=== PATIENT | male | born 1945 | race Caucasian/White ===

== ENCOUNTER 2023-08-02 14:11 | Observation (INO) | payer BC ==
--- NOTE | 2023-08-02 15:22 | XR ---
EXAMINATION TYPE: XR chest 2V DATE OF EXAM: 08/02/2023 3:18 PM CLINICAL INDICATION:Male, 78 years old with history of dysrhythmia; [facility] COMPARISON: None TECHNIQUE: XR chest 2V Frontal and lateral views of the chest. FINDINGS: Lungs/Pleura: Subsegmental atelectasis is identified within the lungs. No evidence of pleural effusio n or pneumothorax. Pulmonary vascularity: Unremarkable. Heart/mediastinum: Cardiomediastinal silhouette is unremarkable. Musculoskeletal: No acute osseous pathology. IMPRESSION: No acute cardiopulmonary disease/process.
--- NOTE | 2023-08-02 15:49 | ED ---
Arrhythmia/Palpitations HPI <Lit Jacobs - Last Filed: 08/02/23 17:56> - General Source: patient Mode of arrival: ambulatory Limitations: no limitations <Naa Lima - Last Filed: 08/02/23 23:25> - General Chief Complaint: Arrhythmia/Palpitations Stated Complaint: fluttery feeling in heart Time Seen by Provider: 08/02/23 14:25 - History of Present Illness Initial Comments: 78-year-old male presents to the emergency department reporting palpitations. Has a history of A-fib. Takes metoprolol 25 mg once daily. States that he went to the [facility] yesterday for the palpitations. They increased his metoprolol to twice a day due to frequent PVCs. Laboratory studies were conducted and were normal. States that his symptoms were so bad last night that he could not sleep. He denies any chest pain or shortness of breath. (Naa Lima) - Related Data Home Medications Medication Instructions Recorded Confirmed Aspirin EC [Ecotrin Low Dose] 81 mg PO HS 08/02/23 08/02/23 Atorvastatin [Lipitor] 20 mg PO HS 08/02/23 08/02/23 Cholecalciferol [Vitamin D3 (25 25 mcg PO HS 08/02/23 08/02/23 Mcg = 1000 Iu)] Cinnamon 1200mg 1,200 mg PO BID 08/02/23 08/02/23 Cyanocobalamin (Vitamin B-12) 1,000 mcg PO DAILY 08/02/23 08/02/23 [Vitamin B-12] Glucosamine/Chondro Chairez A [Cosamin 1 tab PO HS 08/02/23 08/02/23 Ds Tablet] LORazepam [Ativan] 0.5 mg PO HS PRN 08/02/23 08/02/23 Magnesium Chloride [Slow-Mag] 64 mg PO BID 08/02/23 08/02/23 Magnesium Glycinate High Absorption 1 tab PO DAILY 08/02/23 08/02/23 Dustin Red(Unknown) 1 cap PO DAILY 08/02/23 08/02/23 Metoprolol Succinate (ER) [Toprol 25 mg PO BID 08/02/23 08/02/23 Xl] Mv-Min/Folic/K1/Lycopen/Lutein 1 tab PO DAILY 08/02/23 08/02/23 [Centrum Silver Men Tablet] Prevagen 1 cap PO DAILY 08/02/23 08/02/23 Sildenafil Citrate [Viagra] 50 mg PO DIRECTED PRN 08/02/23 08/02/23 Super Beta Prostate 1 tab PO DAILY 08/02/23 08/02/23 Ubidecarenone [Coenzyme Q10] 100 mg PO DAILY 08/02/23 08/02/23 lisinopriL [Zestril] 10 mg PO DAILY 08/02/23 08/02/23 metFORMIN HCL ER [Glucophage XR] 500 mg PO DAILY 08/02/23 08/02/23 polyethylene glycoL 3350 [Miralax] 17 gm PO DAILY PRN 08/02/23 08/02/23 Allergies Allergy/AdvReac Type Severity Reaction Status Date / Time No Known Allergies Allergy Verified 08/02/23 18:14 Review of Systems ROS Other: All systems not noted in ROS Statement are negative. <Lit Jacobs - Last Filed: 08/02/23 17:56> ROS Other: All systems not noted in ROS Statement are negative. <Naa Lima - Last Filed: 08/02/23 23:25> ROS Statement: Those systems with pertinent positive or pertinent negative responses have been documented in the HPI. Past Medical History Past Medical History: Atrial Fibrillation, Diabetes Mellitus, Hyperlipidemia History of Any Multi-Drug Resistant Organisms: None Reported Past Surgical History: Appendectomy, Heart Catheterization With Stent, Hernia Repair Additional Past Surgical History / Comment(s): Stent 2010 Past Psychological History: No Psychological Hx Reported Smoking Status: Never smoker Past Alcohol Use History: Rare Past Drug Use History: None Reported <Naa Lima - Last Filed: 08/02/23 23:25> General Exam Limitations: no limitations General appearance: alert, in no apparent distress Head exam: Present: atraumatic, normocephalic, normal inspection Eye exam: Present: normal appearance, PERRL, EOMI. Absent: scleral icterus, conjunctival injection, periorbital swelling ENT exam: Present: normal exam, mucous membranes moist Neck exam: Present: normal inspection. Absent: tenderness, meningismus, lymphadenopathy Respiratory exam: Present: normal lung sounds bilaterally. Absent: respiratory distress, wheezes, rales, rhonchi, stridor Cardiovascular Exam: Present: regular rate, irregular rhythm, normal heart sounds. Absent: systolic murmur, diastolic murmur, rubs, gallop, clicks GI/Abdominal exam: Present: soft, normal bowel sounds. Absent: distended, tenderness, guarding, rebound, rigid Extremities exam: Present: normal inspection, full ROM, normal capillary refill. Absent: tenderness, pedal edema, joint swelling, calf tenderness Back exam: Present: normal inspection Neurological exam: Present: alert, oriented X3, CN II-XII intact Psychiatric exam: Present: normal affect, normal mood Skin exam: Present: warm, dry, intact, normal color. Absent: rash <Naa Lima - Last Filed: 08/02/23 23:25> Course Vital Signs 08/02/23 08/02/23 08/02/23 14:21 16:00 17:00 Temperature 98.7 F Pulse Rate 92 106 H 103 H Pulse Rate [ Pulse Oximetery ] Respiratory 18 18 18 Rate Blood Pressure 150/75 127/49 135/50 Blood Pressure [Left Arm] O2 Sat by Pulse 98 95 95 Oximetry 08/02/23 08/02/23 08/02/23 18:00 18:43 20:00 Temperature 98.6 F Pulse Rate 125 H 112 H Pulse Rate [ 60 Pulse Oximetery ] Respiratory 18 18 18 Rate Blood Pressure 130/48 116/47 Blood Pressure 130/77 [Left Arm] O2 Sat by Pulse 96 96 96 Oximetry 08/02/23 20:02 Temperature Pulse Rate 58 L Pulse Rate [ Pulse Oximetery ] Respiratory 16 Rate Blood Pressure 113/76 Blood Pressure [Left Arm] O2 Sat by Pulse 97 Oximetry Medical Decision Making - Lab Data Result diagrams: 08/02/23 16:02 08/02/23 16:02 <Lit Jacobs - Last Filed: 08/02/23 17:56> - Lab Data Result diagrams: 08/02/23 16:02 08/02/23 16:02 <Naa Lima - Last Filed: 08/02/23 23:25> - Medical Decision Making Patient care signed out to me by previous shift physician, Dr. Lima. Briefly, patient 78-year-old male presents to the emergency to palpitations. Takes metoprolol daily. He was seen at [place] emergency department where he was told to increase his metoprolol to twice daily 25 mg. He was referred to our emergency department. He wishes to have establish care with cardiology in [facility] because he does not have 1 nearby where he lives. Patient evaluated at bedside at 5:55 PM found to be stable to condition. Laboratory evaluations were re viewed. Labs are within acceptable limits. His laboratory monitor was reviewed he had multiple areas of 3 and 4 run wide-complex tachycardia dysrhythmias. None of them were sustained. Disposition options were discussed with patient. Patient and family felt more comfortable being admitted for observation with consultation to cardiology. (Lit Jacobs) Was pt. sent in by a medical professional or institution (, PA, CARAMEL CUTTER MACHINE, urgent care, hospital, or fpc...) When possible be specific @ -No Did you speak to anyone other than the patient for history (EMS, parent, family, police, friend...)? What history was obtained from this source @ -Spoke with Did you review nursing and triage notes (agree or disagree)? Why? @ -I reviewed and agree with nursing and triage notes Were old charts reviewed (outside hosp., previous admission, EMS record, old EKG, old radiological studies, urgent care reports/EKG's, fpc records)? Report findings @ -I reviewed the patient's discharge summary from [facility] Differential Diagnosis (chest pain, altered mental status, abdominal pain women, abdominal pain men, vaginal bleeding, weakness, fever, dyspnea, syncope, headache, dizziness, GI bleed, back pain, seizure, CVA, palpatations, mental health, musculoskeletal)? @ -Differential Palpitations Ventricular arrhythmias, atrial arrhythmias, myocardial infarction, anemia, thyrotoxicosis, electrolyte imbalance, hypokalemia, pulmonary embolism, pul monary disease, drugs, alcohol, anxiety, stress.... This is not meant to be an all-inclusive list. EKG interpreted by me (3pts min.). @ -Yes and demonstrates sinus rhythm with a rate of 80. OR interval 231. QRS 114. QTc of 403. No acute ST segment elevations or depressions X-rays interpreted by me (1pt min.). @ -Yes and demonstrates no acute process CT interpreted by me (1pt min.). @ -None done U/S interpreted by me (1pt. min.). @ -None done What testing was considered but not performed or refused? (CT, X-rays, U/S, labs)? Why? @ -None What meds were considered but not given or refused? Why? @ -None Did you discuss the management of the patient with other professionals (professionals i.e. , PA, [employer] C[employer]TER MACHINE, lab, RT, psych nurse, socially responsible investment adviser, cotton seed culler, teacher, intelligence officer basic, family caseworker)? Give summary @ -Spoke with Dr. Jaocbs who will await laboratory study results the patient Was smoking cessation discussed for >3mins.? @ -No Was critical care preformed (if so, how long)? @ -No Were there social determinants of health that impacted care today? How? (Homelessness, low income, unemployed, alcoholism, drug addiction, transportation, low edu. Level, literacy, decrease access to med. care, fdc, rehab)? @ -No Was there de-escalation of care discussed even if they declined (Discuss DNR or withdrawal of care, Hospice)? DNR status @ -No What co-morbidities impacted this encounter? (DM, HTN, Smoking, COPD, CAD, Cancer, CVA, ARF, Chemo, Hep., AIDS, mental health diagnosis, sleep apnea, morbid obesity)? @ -A-fib Was patient admitted / discharged? Hospital course, mention meds given and route, prescriptions, significant lab abnormalities, going to OR and other pertinent info. @ -Upon arrival patient was placed into room 24. Thorough history and physical exam was performed. Patient placed on continuous pulse ox and cardiac monitoring. Twelve-lead EKG was obtained. Patient does have multiple PVCs. Laboratory studies are ordered. Chest x-ray was performed. Patient will be signed out to oncoming physician for disposition Undiagnosed new problem with uncertain prognosis? @ -Yes Drug Therapy requiring intensive monitoring for toxicity (Heparin, Nitro, Insul in, Cardizem)? @ -No Were any procedures done? @ -No Diagnosis/symptom? @ -Acute palpitations, PVCs Acute, or Chronic, or Acute on Chronic? @ -Acute Uncomplicated (without systemic symptoms) or Complicated (systemic symptoms)? @ -Complicated Side effects of treatment? @ -No Exacerbation, Progression, or Severe Exacerbation? @ -No Poses a threat to life or bodily function? How? (Chest pain, USA, CA, pneumonia, PE, COPD, DKA, ARF, appy, cholecystitis, CVA, Diverticulitis, Homicidal, Suicida l, threat to staff... and all critical care pts) @ -Unknown. Patient will be signed out for further disposition (Naa Lima) - Lab Data Lab Results 08/02/23 08/02/23 08/02/23 Range/Units 16:02 16:02 16:02 WBC 7.6 (3.8-10.6) k/uL RBC 4.19 L (4.30-5.90) m/uL Hgb 13.1 (13.0-17.5) gm/dL Hct 39.1 (39.0-53.0) % MCV 93.3 (80.0-100.0) fL MCH 31.2 (25.0-35.0) pg MCHC 33.4 (31.0-37.0) g/dL RDW 12.7 (11.5-15.5) % Plt Count 246 (150-450) k/uL MPV 7.5 Neutrophils % 61 % Lymphocytes % 24 % Monocytes % 8 % Eosinophils % 3 % Basophils % 1 % Neutrophils # 4.6 (1.3-7.7) k/uL Lymphocytes # 1.8 (1.0-4.8) k/uL Monocytes # 0.6 (0-1.0) k/uL Eosinophils # 0.2 (0-0.7) k/uL Basophils # 0.1 (0-0.2) k/uL PT 10.2 (10.0-12.5) sec INR 0.9 (<1.2) APTT 23.1 (22.0-30.0) sec Sodium 140 (137-145) mmol/L Potassium 4.6 (3.5-5.1) mmol/L Chloride 112 H (98-107) mmol/L Carbon Dioxide 23 (22-30) mmol/L Anion Gap 5 mmol/L BUN 25 H (9-20) mg/dL Creatinine 0.84 (0.66-1.25) mg/dL Est GFR (CKD-EPI)AfAm >90 (>60 ml/min/1.73 sqM) Est GFR (CKD-EPI)NonAf 83 (>60 ml/min/1.73 sqM) Glucose 108 H (74-99) mg/dL Calcium 9.6 (8.4-10.2) mg/dL Magnesium 1.8 (1.6-2.3) mg/dL Total Bilirubin 0.8 (0.2-1.3) mg/dL AST 33 (17-59) U/L ALT 23 (4-49) U/L Alkaline Phosphatase 55 (38-126) U/L Troponin I (0.000-0.034) ng/mL Total Protein 7.2 (6.3-8.2) g/dL Albumin 4.1 (3.5-5.0) g/dL TSH 2.110 (0.465-4.680) mIU/L 08/02/23 Range/Units 16:02 WBC (3.8-10.6) k/uL RBC (4.30-5.90) m/uL Hgb (13.0-17.5) gm/dL Hct (39.0-53.0) % MCV (80.0-100.0) fL MCH (25.0-35.0) pg MCHC (31.0-37.0) g/dL RDW (11.5-15.5) % Plt Count (150-450) k/uL MPV Neutrophils % % Lymphocytes % % Monocytes % % Eosinophils % % Basophils % % Neutrophils # (1.3-7.7) k/uL Lymphocytes # (1.0-4.8) k/uL Monocytes # (0-1.0) k/uL Eosinophils # (0-0.7) k/uL Basophils # (0-0.2) k/uL PT (10.0-12.5) sec INR (<1.2) APTT (22.0-30.0) sec Sodium (137-145) mmol/L Potassium (3.5-5.1) mmol/L Chloride (98-107) mmol/L Carbon Dioxide (22-30) mmol/L Anion Gap mmol/L BUN (9-20) mg/dL Creatinine (0.66-1.25) mg/dL Est GFR (CKD-EPI)AfAm (>60 ml/min/1.73 sqM) Est GFR (CKD-EPI)NonAf (>60 ml/min/1.73 sqM) Glucose (74-99) mg/dL Calcium (8.4-10.2) mg/dL Magnesium (1.6-2.3) mg/dL Total Bilirubin (0.2-1.3) mg/dL AST (17-59) U/L ALT (4-49) U/L Alkaline Phosphatase (38-126) U/L Troponin I <0.012 (0.000-0.034) ng/mL Total Protein (6.3-8.2) g/dL Albumin (3.5-5.0) g/dL TSH (0.465-4.680) mIU/L Disposition Decision Time: 17:56 <Lit Jacobs - Last Filed: 08/02/23 17:56> <Naa Lima - Last Filed: 08/02/23 23:25> Clinical Impression: Palpitations Disposition: ADMITTED IP TO THIS HOSP Condition: Fair
[2023-08-02 16:31] LABS: Basophils # (A) 0.1 k/uL (0-0.2); Basophils % (A) 1 %; Eosinophils # (A) 0.2 k/uL (0-0.7); Eosinophils % (A) 3 %; HCT 39.1 % (39.0-53.0); HGB 13.1 gm/dL (13.0-17.5); Lymphocytes # (A) 1.8 k/uL (1.0-4.8); Lymphocytes % (A) 24 %; MCH 31.2 pg (25.0-35.0); MCHC 33.4 g/dL (31.0-37.0); MCV 93.3 fL (80.0-100.0); Mean Platelet Volume 7.5; Monocytes # (A) 0.6 k/uL (0-1.0); Monocytes % (A) 8 %; Neutrophils # (A) 4.6 k/uL (1.3-7.7); Neutrophils % (A) 61 %; Platelet Count 246 k/uL (150-450); RBC 4.19 m/uL (4.30-5.90); RDW 12.7 % (11.5-15.5); WBC 7.6 k/uL (3.8-10.6)
[2023-08-02 16:39] LABS: INR 0.9 (<1.2); Partial Thromboplastin Time 23.1 sec (22.0-30.0); Prothrombin Time 10.2 sec (10.0-12.5)
[2023-08-02 16:41] LABS: ALT 23 U/L (4-49); AST 33 U/L (17-59); African American GFR (CKD) >90 (>60 ml/min/1.73 sqM); Albumin 4.1 g/dL (3.5-5.0); Alkaline Phosphatase 55 U/L (38-126); Anion Gap 5 mmol/L; Blood Urea Nitrogen 25 mg/dL (9-20); Calcium 9.6 mg/dL (8.4-10.2); Carbon Dioxide 23 mmol/L (22-30); Chloride 112 mmol/L (98-107); Glucose 108 mg/dL (74-99); Magnesium 1.8 mg/dL (1.6-2.3); Non-African American GFR(CKD) 83 (>60 ml/min/1.73 sqM); Sodium 140 mmol/L (137-145); Total Bilirubin 0.8 mg/dL (0.2-1.3); Total Protein 7.2 g/dL (6.3-8.2)
[2023-08-02 16:43] LABS: Potassium 4.6 mmol/L (3.5-5.1)
[2023-08-02] MEDS ORDERED: NALOXONE 0.4 MG/ML 1 ML VIAL IV PRN (17:49)
[2023-08-02] MEDS: SODIUM CHLORIDE 0.9% 1,000 ML IV SCH (18:45)
[2023-08-03 05:20] VITALS: RESP 18
[2023-08-03] MEDS ORDERED: DEXTROSE 50% SYRINGE 50 ML IVP PRN ×2 (05:51)
--- NOTE | 2023-08-03 05:56 | P.HPIM ---
History of Present Illness H&P Date: 08/02/23 Chief Complaint: Palpitations 78-year-old male with history of A-fib not on blood thinners Patient coming in for sudden onset palpitations that started on Thursday night he was feeling some fluttering over the left side of the chest while resting doing nothing it was not related to any activity, this was not associated with any nausea vomiting shortness of breath or chest pain no dizziness no lightheadedness. He was so scared of this feeling all day and night he could not sleep, he denies that he ever felt like this before he was concerned regarding having a heart attack and decided to go to the nearest hospital antibiotics and then he was transferred to our facility for further care . The doctors at the [facility] adjusted his metoprolol from once a day to twice a day Patient denies any recent travel or hospital stay denies any history of blood clots denies any history of heart attack Patient denies tobacco smoking illicit drugs or heavy alcohol Patient denies any recent upper respiratory infection review of systems Pertinent positives as noted in HPI. All other systems were reviewed and are negative on exam Constitutional: No acute distress, conversant, pleasant Eyes: Anicteric sclerae, moist conjunctiva, Pupils equal round reactive to light ENMT: NC/AT Oropharynx clear, no erythema, or exudates Neck: Supple, no masses, or JVD No carotid bruits No thyromegaly Lungs: Clear to auscultation Clear to percussion Normal respiratory effort, no accessory muscle use Cardiovascular: Heart regular in rate and rhythm, No murmurs, gallops, or rubs No peripheral edema Abdominal: Soft Nontender, no guarding, rebound or rigidity Abdomen moving with respiration Normoactive bowel sounds No hepatomegaly, No splenomegaly Extremities: No digital cyanosis No clubbing Pedal pulses intact and symmetrical Radial pulses intact and symmetrical No calf tenderness Psychiatric: Alert and oriented to person, place and time Appropriate affect fair judgement Neuro Muscles Strength 5/5 in all 4 extremities Sensation to light touch grossly present throughout Cranial nerves II-XII grossly intact Past Medical History Past Medical History: Atrial Fibrillation, Diabetes Mellitus, Hyperlipidemia History of Any Multi-Drug Resistant Organisms: None Reported Past Surgical History: Appendectomy, Heart Catheterization With Stent, Hernia Repair, Orthopedic Surgery Additional Past Surgical History / Comment(s): Stent 2010, right knee surgery Past Anesthesia/Blood Transfusion Reactions: No Reported Reaction Date of Last Stent Placement:: 2010 Past Psychological History: No Psychological Hx Reported Smoking Status: Never smoker Past Alcohol Use History: Rare Past Drug Use History: None Reported Medications and Allergies Home Medications Medication Instructions Recorded Confirmed Type Aspirin EC [Ecotrin Low Dose] 81 mg PO HS 08/02/23 08/02/23 History Atorvastatin [Lipitor] 20 mg PO HS 08/02/23 08/02/23 History Cholecalciferol [Vitamin D3 (25 25 mcg PO HS 08/02/23 08/02/23 History Mcg = 1000 Iu)] Cinnamon 1200mg 1,200 mg PO BID 08/02/23 08/02/23 History Cyanocobalamin (Vitamin B-12) 1,000 mcg PO DAILY 08/02/23 08/02/23 History [Vitamin B-12] Glucosamine/Chondro Chairez A [Cosamin 1 tab PO HS 08/02/23 08/02/23 History Ds Tablet] LORazepam [Ativan] 0.5 mg PO HS PRN 08/02/23 08/02/23 History Magnesium Chloride [Slow-Mag] 64 mg PO BID 08/02/23 08/02/23 History Magnesium Glycinate High Absorption 1 tab PO DAILY 08/02/23 08/02/23 History Dustin Red(Unknown) 1 cap PO DAILY 08/02/23 08/02/23 History Metoprolol Succinate (ER) [Toprol 25 mg PO BID 08/02/23 08/02/23 History Xl] Mv-Min/Folic/K1/Lycopen/Lutein 1 tab PO DAILY 08/02/23 08/02/23 History [Centrum Silver Men Tablet] Prevagen 1 cap PO DAILY 08/02/23 08/02/23 History Sildenafil Citrate [Viagra] 50 mg PO DIRECTED PRN 08/02/23 08/02/23 History Super Beta Prostate 1 tab PO DAILY 08/02/23 08/02/23 History Ubidecarenone [Coenzyme Q10] 100 mg PO DAILY 08/02/23 08/02/23 History lisinopriL [Zestril] 10 mg PO DAILY 08/02/23 08/02/23 History metFORMIN HCL ER [Glucophage XR] 500 mg PO DAILY 08/02/23 08/02/23 History polyethylene glycoL 3350 [Miralax] 17 gm PO DAILY PRN 08/02/23 08/02/23 History Allergies Allergy/AdvReac Type Severity Reaction Status Date / Time No Known Allergies Allergy Verified 08/02/23 18:14 Physical Exam Vitals: Vital Signs Temp Pulse Pulse Resp BP BP Pulse Ox 08/02/23 20:02 58 L 16 113/76 97 08/02/23 20:00 98.6 F 60 18 130/77 96 08/02/23 18:43 112 H 18 116/47 96 08/02/23 18:00 125 H 18 130/48 96 08/02/23 17:00 103 H 18 135/50 95 08/02/23 16:00 106 H 18 127/49 95 08/02/23 14:21 98.7 F 92 18 150/75 98 Intake and Output 08/02/23 08/02/23 08/02/23 06:59 14:59 22:59 Other: Voiding Method Toilet # Voids 1 Weight 108.862 kg 108.862 kg Results CBC & Chem 7: 08/02/23 16:02 08/02/23 16:02 Labs: Abnormal Lab Results - Last 24 Hours (Table) 08/02/23 08/02/23 Range/Units 16:02 16:02 RBC 4.19 L (4.30-5.90) m/uL Chloride 112 H (98-107) mmol/L BUN 25 H (9-20) mg/dL Glucose 108 H (74-99) mg/dL Thrombosis Risk Factor Assmnt - Choose All That Apply Any of the Below Risk Factors Present?: Yes Each Factor Represents 1 point: Obesity (BMI >25) Each Risk Factor Represents 3 Points: Age 75 years or older Thrombosis Risk Factor Assessment Total Risk Factor Score: 4 Thrombosis Risk Factor Assessment Level: Moderate Risk Assessment and Plan Assessment: 78-year-old male with A-fib not on blood thinners coming in for sudden onset palpitations I discussed case with ED doctor accepted the admission for palpitations to rule out underlying arrhythmia with anticipated length of stay less than 2 midnights Palpitations EKG showed normal sinus rhythm no acute ST changes, occasional PVCs Tropes negative TSH 2.1 unremarkable Chest x-ray no acute cardiopulmonary process White count 7.6 hemoglobin 13.1 both unremarkable patient afebrile Renal function unremarkable sodium 140 potassium 4.6 BUN 25 creatinine 0.84 Cardiac monitoring Cardiology consult Continue with aspirin and statin home medications Hypertension Continue with lisinopril 10 mg p.o. daily Continue metoprolol 25 mg p.o. twice daily this was adjusted antibiotics hospital he used to take once a day Full code DVT prophylaxis heparin subcu 3 times daily
[2023-08-03 06:16] LABS: Glucose,Whole Blood 97 mg/dL (70-110)
[2023-08-03] MEDS: INSULIN ASPART (NovoLOG) 100 UNIT/ML VIAL SQ SCH (06:26)
[2023-08-03] MEDS: METOPROLOL SUCCINATE (ER) 25 MG TAB.ER.24H PO SCH (08:53)
[2023-08-03] MEDS: HEPARIN SODIUM,PORCINE 5,000 UNIT/ML 1 ML VIAL SQ SCH (08:53)
[2023-08-03] MEDS: lisinopriL 10 MG TAB PO SCH (08:53)
--- NOTE | 2023-08-03 11:03 | P.CRDCN ---
History of Present Illness History of present illness: HISTORY OF PRESENT ILLNESS: This is a 78-year-old male with a past medical history significant for coronary artery disease with previous stenting to the LAD in 2010, atrial fibrillation, hyperlipidemia, hypertension, and diabetes. Patient follows with a firer automatic stoker at [facility], Dr. Newell. We have been asked to see the patient in consultation for palpitations. Patient examined at the bedside. Patient initially presented to the hospital with a chief complaint of palpitations. Patient was seen over the weekend at [facility] for the same complaint. His metoprolol was increased from once a day to twice a day. He states he began to have symptoms again so he drove down to [facility] for further evaluation. The patient states he has had no further episodes of palpitations since being in the hospital. Patient currently denies any chest pain or pressure. He denies any shortness of breath. Telemetry reveals sinus mechanism with PACs and PVCs. No evidence of atrial fibrillation. The patient does report he had a cardiac catheterization performed about a year or 2 ago which revealed a patent stent in the LAD. He states he did not require any other stenting at that time. Patient is not anticoagulated on an outpatient basis for his atrial fibrillation. He is unsure of the reason for this. DIAGNOSTICS: - EKG reveals sinus mechanism with PVCs. No signs of acute ischemia.. - Chest xray negative for acute process. - Laboratory data: WBC 7.6. Hemoglobin 13.1. Platelet count 246. Sodium 140. Potassium 4.6. BUN 25. Creatinine 0.84. Magnesium 1.8. Troponin negative x 2. TSH 2.110. - Current home cardiac medications include lisinopril 10 mg daily, metoprolol succinate 25 mg twice a day, Lipitor 20 mg at night, aspirin 81 mg at night. REVIEW OF SYSTEMS: At the time of my exam: CONSTITUTIONAL: Denies fever or chills. HEENT: Denies blurred vision, vision changes, or eye pain. Denies hemoptysis CARDIOVASCULAR: Denies chest pain. Denies orthopnea. Denies PND. Denies palpitations RESPIRATORY: Denies shortness of breath. GASTROINTESTINAL: Denies abdominal pain. Denies nausea or vomiting. HEMATOLOGIC: Denies bleeding disorders. GENITOURINARY: Denies any blood in urine. SKIN: Denies pruitis. Denies rash. PHYSICAL EXAM: VITAL SIGNS: Reviewed. GENERAL: Well-developed in no acute distress. HEENT: Head is normocephalic. Pupils are equal, round. Sclerae anicteric. Mucous membranes of the mouth are moist. Neck supple. No JVD or thyromegaly LUNGS: Respirations even and unlabored. Lungs essentially clear to auscultation bilaterally. HEART: Regular rate and rhythm. S1 and S2 heard. ABDOMEN: Soft. Nondistended. Nontender. EXTREMITIES: Normal range of motion. No clubbing or cyanosis. Peripheral pulses intact. No lower extremity edema NEUROLOGIC: Awake and alert. Oriented x 3. ASSESSMENT: Palpitations Paroxysmal atrial fibrillation, currently maintaining sinus mechanism, not on anticoagulation on an outpatient basis for unknown reason Coronary artery disease with previous PCI to the LAD, 2010, at [facility] Hypertension Hyperlipidemia Diabetes PLAN: Continue current cardiac medications Continue current dose of metoprolol succinate 25 mg twice a day Continue telemetry monitoring Obtain 2D echo to assess cardiac structure and function Anticipate discharge home today Patient to follow-up postdischarge with Dr. Barrientos as he would like to establish care locally Nurse practitioner note has been reviewed by physician. Signing provider agrees with the documented findings, assessment, and plan of care documented by CORRECTIONAL CLASSIFICATION COUNSELOR as a scribe. Past Medical History Past Medical History: Atrial Fibrillation, Diabetes Mellitus, Hyperlipidemia History of Any Multi-Drug Resistant Organisms: None Reported Past Surgical History: Appendectomy, Heart Catheterization With Stent, Hernia Repair, Orthopedic Surgery Additional Past Surgical History / Comment(s): Stent 2010, right knee surgery Past Anesthesia/Blood Transfusion Reactions: No Reported Reaction Date of Last Stent Placement:: 2010 Past Psychological History: No Psychological Hx Reported Smoking Status: Never smoker Past Alcohol Use History: Rare Past Drug Use History: None Reported Medications and Allergies Home Medications Medication Instructions Recorded Confirmed Type Aspirin EC [Ecotrin Low Dose] 81 mg PO HS 08/02/23 08/02/23 History Atorvastatin [Lipitor] 20 mg PO HS 08/02/23 08/02/23 History Cholecalciferol [Vitamin D3 (25 25 mcg PO HS 08/02/23 08/02/23 History Mcg = 1000 Iu)] Cinnamon 1200mg 1,200 mg PO BID 08/02/23 08/02/23 History Cyanocobalamin (Vitamin B-12) 1,000 mcg PO DAILY 08/02/23 08/02/23 History [Vitamin B-12] Glucosamine/Chondro Chairez A [Cosamin 1 tab PO HS 08/02/23 08/02/23 History Ds Tablet] LORazepam [Ativan] 0.5 mg PO HS PRN 08/02/23 08/02/23 History Magnesium Chloride [Slow-Mag] 64 mg PO BID 08/02/23 08/02/23 History Magnesium Glycinate High Absorption 1 tab PO DAILY 08/02/23 08/02/23 History Dustin Red(Unknown) 1 cap PO DAILY 08/02/23 08/02/23 History Metoprolol Succinate (ER) [Toprol 25 mg PO BID 08/02/23 08/02/23 History Xl] Mv-Min/Folic/K1/Lycopen/Lutein 1 tab PO DAILY 08/02/23 08/02/23 History [Centrum Silver Men Tablet] Prevagen 1 cap PO DAILY 08/02/23 08/02/23 History Sildenafil Citrate [Viagra] 50 mg PO DIRECTED PRN 08/02/23 08/02/23 History Super Beta Prostate 1 tab PO DAILY 08/02/23 08/02/23 History Ubidecarenone [Coenzyme Q10] 100 mg PO DAILY 08/02/23 08/02/23 History lisinopriL [Zestril] 10 mg PO DAILY 08/02/23 08/02/23 History metFORMIN HCL ER [Glucophage XR] 500 mg PO DAILY 08/02/23 08/02/23 History polyethylene glycoL 3350 [Miralax] 17 gm PO DAILY PRN 08/02/23 08/02/23 History Allergies Allergy/AdvReac Type Severity Reaction Status Date / Time No Known Allergies Allergy Verified 08/02/23 18:14 Physical Exam Vitals: Vital Signs Temp Pulse Pulse Resp BP BP Pulse Ox 08/03/23 02:00 98.2 F 61 18 116/64 98 08/02/23 20:02 58 L 16 113/76 97 08/02/23 20:00 98.6 F 60 18 130/77 96 08/02/23 18:43 112 H 18 116/47 96 08/02/23 18:00 125 H 18 130/48 96 08/02/23 17:00 103 H 18 135/50 95 08/02/23 16:00 106 H 18 127/49 95 08/02/23 14:21 98.7 F 92 18 150/75 98 Intake and Output 08/02/23 08/03/23 08/03/23 22:59 06:59 14:59 Other: Voiding Method Toilet # Voids 1 1 Weight 108.862 kg Results 08/02/23 16:02 08/02/23 16:02 Cardiac Enzymes 08/02/23 08/02/23 Range/Units 16:02 16:02 AST 33 (17-59) U/L Troponin I <0.012 (0.000-0.034) ng/mL Coagulation 08/02/23 Range/Units 16:02 PT 10.2 (10.0-12.5) sec APTT 23.1 (22.0-30.0) sec CBC 08/02/23 Range/Units 16:02 WBC 7.6 (3.8-10.6) k/uL RBC 4.19 L (4.30-5.90) m/uL Hgb 13.1 (13.0-17.5) gm/dL Hct 39.1 (39.0-53.0) % Plt Count 246 (150-450) k/uL Comprehensive Metabolic Panel 08/02/23 Range/Units 16:02 Sodium 140 (137-145) mmol/L Potassium 4.6 (3.5-5.1) mmol/L Chloride 112 H (98-107) mmol/L Carbon Dioxide 23 (22-30) mmol/L BUN 25 H (9-20) mg/dL Creatinine 0.84 (0.66-1.25) mg/dL Glucose 108 H (74-99) mg/dL Calcium 9.6 (8.4-10.2) mg/dL AST 33 (17-59) U/L ALT 23 (4-49) U/L Alkaline Phosphatase 55 (38-126) U/L Total Protein 7.2 (6.3-8.2) g/dL Albumin 4.1 (3.5-5.0) g/dL Current Medications Generic Name Dose Route Start Last Admin Trade Name Freq PRN Reason Stop Dose Admin Aspirin 81 mg 08/03/23 21:00 Aspirin 81 Mg PO HS LISSA Atorvastatin Calcium 20 mg 08/03/23 21:00 Atorvastatin 20 Mg Tab PO HS LISSA Dextrose/Water 25 ml 08/03/23 05:51 Dextrose 50% Syringe 50 Ml IVP PER PROTOCOL PRN Hypoglycemia Protocol Dextrose/Water 50 ml 08/03/23 05:51 Dextrose 50% Syringe 50 Ml IVP PER PROTOCOL PRN Hypoglycemia Protocol Heparin Sodium (Porcine) 5,000 unit 08/03/23 08:00 Heparin Sodium,Porcine 5,000 Unit/Ml 1 Ml Vial SQ Q8HR [facility] Sodium Chloride 1,000 mls @ 20 mls/hr 08/02/23 18:00 08/02/23 18:45 Saline 0.9% IV 20 mls/hr .Q24H LISSA Administration Insulin Aspart 0 unit 08/03/23 07:30 08/03/23 06:26 Insulin Aspart (Novolog) 100 Unit/Ml Vial SQ Not Given ACHS [facility] Protocol Lisinopril 10 mg 08/03/23 09:00 Lisinopril 10 Mg Tab PO DAILY [facility] Metoprolol Succinate 25 mg 08/03/23 09:00 Metoprolol Succinate (Er) 25 Mg Tab.Er.24h PO BID [facility] Naloxone HCl 0.2 mg 08/02/23 17:49 Naloxone 0.4 Mg/Ml 1 Ml Vial IV Q2M PRN Opioid Reversal Intake and Output 08/02/23 08/03/23 08/03/23 22:59 06:59 14:59 Other: Voiding Method Toilet # Voids 1 1 Weight 108.862 kg 08/02/23 16:02 08/02/23 16:02
[2023-08-03 12:45] LABS: Glucose,Whole Blood 77 mg/dL (70-110)
--- NOTE | 2023-08-03 14:36 | P.DS ---
Providers Date of admission: 08/02/23 17:50 Expected date of discharge: 08/03/23 Attending physician: Brenda Palmer DO Primary care physician: Kayla Arellano MD Hospital Course: Discharge Diagnosis: Palpitations, EKG showing occasional PVCs. History of CAD with previous stenting Hypertension Hyperlipidemia Paroxysmal atrial fibrillation Hospital Course: Patient is a very pleasant 78-year-old male with a past medical history of CAD with stent, hypertension, hyperlipidemia, paroxysmal atrial fibrillation not on anticoagulation, and type II [id number] diabetes mellitus. He presented to the emergency department with a chief complaint of palpitations. He reported palpitations at rest stating he has never experienced a feeling like this in the past. He denied any associated symptoms including headache, lightheadedness, dizziness, changes in vision or hearing, chest pain, shortness of breath, cough or congestion, or experiencing any numbness/tingling/weakness/swelling in his extremities. Upon arrival to the emergency department patient underwent full evaluation. Vital signs upon arrival show blood pressure 150/75, heart rate 92, respiratory rate 18, temp 98.7 F, and SpO2 of 98% on room air. EKG was completed showing normal sinus rhythm at 80 bpm with a first-degree AV block with DC interval of 231 ms and occasional PVCs. Chest x-ray was completed negative for acute cardiopulmonary process. Labs completed and reviewed. CBC and coagulation profile were unremarkable. BMP revealing hyperchloremia with chloride of 112 and mild prerenal azotemia with BUN of 25. Blood glucose was 108. Magnesium normal findings at 1.8 and calcium of 9.6. Liver profile unremarkable. Troponin was negative at less than 0.012 and TSH was 2.110. Patient was admitted under our services with consultation to cardiology. Troponins were trended all negative at less than 0.012 x 3 draws. Patient was evaluated by chimney builder helper and an echocardiogram was completed. Per cardiology, echocardiogram will not be read until tomorrow and clearing patient from cardiac perspective for discharge stating patient may follow-up outpatient in their office in 1 week to discuss echocardiogram results and further recommendations. Medically, patient is stable for discharge at this time. Patient to follow-up outpatient with PCP in 1 to 2 days and with chimney builder helper in 1 week. Physical exam: Patient seen and examined at bedside. Vital signs reviewed and stable. General: Nontoxic, no distress and appears stated age. Derm: Skin warm and dry, normal coloration for ethnicity. Head: Atraumatic, normocephalic and symmetric. Eyes: EOMs intact, no lid lag, and anicteric sclera Mouth: no lip lesions, mucus membranes moist Cardiovascular: regular rate and rhythm with normal S1S2, no murmur, positive posterior tibial pulses bilaterally, and cap refill < 2 seconds. Lungs: Respirations even, regular, and unlabored on room air. Lungs CTA bilaterally, no rhonchi, no rales, no wheezing, and no accessory muscle usage. Abdominal: soft, nontender to palpation, no guarding, no appreciable organomegaly Ext: ROM intact. No gross muscle atrophy, no edema, no contractures Neuro: Speech clear, face symmetrical and CN II-XII grossly intact with no noted focal neuro deficits Psych: Alert and oriented to person, place, time, and situation. Appropriate and pleasant affect. A total of 32 minutes of time were spent preparing this complex discharge summary. Pt was discharged on 08/03/2023 at 2:13 PM. Patient was seen independently by Nurse Practitioner. This document was prepared using [email or web address] dictation software. Please allow for errors in cut pressman while rare they do occur. Raphael Ureña NP rendered care for this patient independently, reviewed the findings and plan as documented in the note above. I did not physically speak with or examine the patient on this date. Patient Condition at Discharge: Stable Plan - Discharge Summary New Discharge Prescriptions: Continue Glucosamine/Chondro Chairez A [Cosamin Ds Tablet] 1 tab PO HS Aspirin EC [Ecotrin Low Dose] 81 mg PO HS Atorvastatin [Lipitor] 20 mg PO HS Ubidecarenone [Coenzyme Q10] 100 mg PO DAILY Super Beta Prostate 1 tab PO DAILY LORazepam [Ativan] 0.5 mg PO HS PRN PRN Reason: Insomnia Cinnamon 1200mg 1,200 mg PO BID metFORMIN HCL ER [Glucophage XR] 500 mg PO DAILY Magnesium Glycinate High Absorption 1 tab PO DAILY Cholecalciferol [Vitamin D3 (25 Mcg = 1000 Iu)] 25 mcg PO HS polyethylene glycoL 3350 [Miralax] 17 gm PO DAILY PRN PRN Reason: Constipation Sildenafil Citrate [Viagra] 50 mg PO DIRECTED PRN PRN Reason: E.D. Magnesium Chloride [Slow-Mag] 64 mg PO BID Metoprolol Succinate (ER) [Toprol XL] 25 mg PO BID Cyanocobalamin (Vitamin B-12) [Vitamin B-12] 1,000 mcg PO DAILY Mv-Min/Folic/K1/Lycopen/Lutein [Centrum Silver Men Tablet] 1 tab PO DAILY Dustin Red(Unknown) 1 cap PO DAILY lisinopriL [Zestril] 10 mg PO DAILY Prevagen 1 cap PO DAILY Discharge Medication List Aspirin EC [Ecotrin Low Dose] 81 mg PO HS 08/02/23 [History] Atorvastatin [Lipitor] 20 mg PO HS 08/02/23 [History] Cholecalciferol [Vitamin D3 (25 Mcg = 1000 Iu)] 25 mcg PO HS 08/02/23 [History] Cinnamon 1200mg 1,200 mg PO BID 08/02/23 [History] Cyanocobalamin (Vitamin B-12) [Vitamin B-12] 1,000 mcg PO DAILY 08/02/23 [History] Glucosamine/Chondro Chairez A [Cosamin Ds Tablet] 1 tab PO HS 08/02/23 [History] LORazepam [Ativan] 0.5 mg PO HS PRN 08/02/23 [History] Magnesium Chloride [Slow-Mag] 64 mg PO BID 08/02/23 [History] Magnesium Glycinate High Absorption 1 tab PO DAILY 08/02/23 [History] Dustin Red(Unknown) 1 cap PO DAILY 08/02/23 [History] Metoprolol Succinate (ER) [Toprol XL] 25 mg PO BID 08/02/23 [History] Mv-Min/Folic/K1/Lycopen/Lutein [Centrum Silver Men Tablet] 1 tab PO DAILY 08/02/23 [History] Prevagen 1 cap PO DAILY 08/02/23 [History] Sildenafil Citrate [Viagra] 50 mg PO DIRECTED PRN 08/02/23 [History] Super Beta Prostate 1 tab PO DAILY 08/02/23 [History] Ubidecarenone [Coenzyme Q10] 100 mg PO DAILY 08/02/23 [History] lisinopriL [Zestril] 10 mg PO DAILY 08/02/23 [History] metFORMIN HCL ER [Glucophage XR] 500 mg PO DAILY 08/02/23 [History] polyethylene glycoL 3350 [Miralax] 17 gm PO DAILY PRN 08/02/23 [History] Follow up Appointment(s)/Referral(s): Kayla Arellano MD [Primary Care Provider] - 1-2 days Miguel Angel Barrientos MD [STAFF PHYSICIAN] - 1 Week Activity/Diet/Wound Care/Special Instructions: Activity: As tolerated. Take breaks as needed. Diet: Heart healthy and carb consistent diet. Avoid salts, or foods with hidden salts such as canned or boxed foods and frozen dinners. Extra salt makes your heart work harder and traps the fluid in your body for longer. Special Instructions: Take all of your medications as directed and remember to keep all of your d octor's appointments and follow-up as needed. Per cardiology, you are cleared for discharge and may follow-up in their office next week as discussed to review and discuss your echocardiogram results as they are not available at time of discharge. Thank you for allowing us to participate in your care, it was truly a pleasure having you for our patient!!! Discharge Disposition: HOME SELF-CARE
[2023-08-03 15:11] VITALS: BP 138/66; PULSE 73; TEMP 98.4
[2023-08-03] MEDS ORDERED: ATORVASTATIN 20 MG TAB PO SCH (21:00)
[2023-08-03] MEDS ORDERED: ASPIRIN 81 MG PO SCH (21:00)
--- NOTE | 2023-08-04 08:33 | CA ---
Transthoracic Echo Report Name: Ignacio Robbins Age: 78 Gender: M : 1945 Exam Date: 08/03/2023 12:43 Exam Location: [facility] Ht (in): 71 Wt (lb): 240 Ordering Physician: Sirena Brennan Attending/Referring Phys: [id number], Anu Manager Surgery Aleyda Elliott RDCS Procedure CPT: Indications: LV function Cardiac Hx: Technical Quality: Technically difficult study Contrast 1: Definity Total Dose (mL): 2 Contrast 2: Total Dose (mL): MEASUREMENTS (Male / Female) Normal Values 2D ECHO LV Diastolic Diameter PLAX 4.2 cm 4.2 - 5.9 / 3.9 - 5.3 cm LV Systolic Diameter PLAX 2.0 cm IVS Diastolic Thickness 1.3 cm 0.6 - 1.0 / 0.6 - 0.9 cm LVPW Diastolic Thickness 1.3 cm 0.6 - 1.0 / 0.6 - 0.9 cm LV Relative Wall Thickness 0.6 RV Internal Dim ED PLAX 3.3 cm LVOT Diameter 2.2 cm LA Volume 106.1 cm??? 18 - 58 / 22 - 52 cm??? LA Volume Index 44.8 cm???/m??? 16 - 28 cm???/m??? M-MODE Aortic Root Diameter MM 3.8 cm LA Systolic Diameter MM 3.2 cm LA Ao Ratio MM 0.8 AV Cusp Separation MM 2.0 cm DOPPLER AV Peak Velocity 238.7 cm/s AV Peak Gradient 22.8 mmHg AV Mean Velocity 162.4 cm/s AV Mean Gradient 11.8 mmHg AV Velocity Time Integral 54.7 cm AI Peak Velocity 322.3 cm/s AI Peak Gradient 41.5 mmHg AI Pressure Half Time 793.3 ms LVOT Peak Velocity 85.8 cm/s LVOT Peak Gradient 2.9 mmHg LVOT Velocity Time Integral 19.1 cm LVOT Stroke Volume 73.9 cm??? LVOT Stroke Volume Index 32.4 ml/m??? LVOT Cardiac Index 1807.7 cm???/min???m??? AV Area Cont Eq vti 1.4 cm??? AV Area Cont Eq pk 1.4 cm??? MV Area PHT 2.9 cm??? Mitral E Point Velocity 76.5 cm/s Mitral A Point Velocity 95.5 cm/s Mitral E to A Ratio 0.8 MV Deceleration Time 263.4 ms MV E' Velocity 6.8 cm/s Mitral E to MV E' Ratio 11.2 TR Peak Velocity 246.1 cm/s TR Peak Gradient 24.2 mmHg Right Ventricular Systolic Press 28.2 mmHg FINDINGS Left Ventricle Mildly increased septal wall thickness. Left ventricular cavity size normal. Normal left ventricular systolic function with no obvious regional wall motion abnormalities. Left ventricular ejection fraction is estimated at 55-60 %. Right Ventricle Normal right ventricular size and function. Right ventricular systolic pressure within normal limits. Right Atrium Normal right atrial size. Left Atrium Severely increased left atrial volume. Mildly increased left atrial area. Mitral Valve Structurally normal mitral valve. No mitral stenosis. Mitral valve thickened. Mild mitral annular calcification. [id number] mitral regurgitation. Aortic Valve Mild aortic stenosis with a peak gradient of 23 mmHg and a mean gradient of 12 mmHg. Trace to mild aortic regurgitation. Tricuspid Valve Structurally normal tricuspid valve. Mild tricuspid regurgitation. Pulmonic Valve Structurally normal pulmonic valve. Trace pulmonic regurgitation. Pericardium No pericardial effusion. Aorta Normal size aortic root and proximal ascending aorta. CONCLUSIONS Normal LV function Mild to moderate mitral regurgitation Mild aortic stenosis Previewed by: Dr. Miguel Angel Barrientos MD (Electronically Signed) Final Date: 04 August 2023 08:32
== END 2023-08-03 14:35 | disposition home or self-care (01) ==
LOC: EC 14:11 → 6NMEDSUR 17:50
PROVIDERS: ADMIT Internal Medicine; ATTEND Internal Medicine
DX: R00.2 Palpitations (principal); I49.02 Ventricular flutter; I25.10 Atherosclerotic heart disease of native coronary artery without angina pectoris; I10 Essential (primary) hypertension; E78.5 Hyperlipidemia, unspecified; I48.0 Paroxysmal atrial fibrillation; E11.9 Type 2 diabetes mellitus without complications; I44.30 Unspecified atrioventricular block; E87.8 Other disorders of electrolyte and fluid balance, not elsewhere classified; Z79.899 Other long term (current) drug therapy; Z95.5 Presence of coronary angioplasty implant and graft; Z79.82 Long term (current) use of aspirin; Z79.84 Long term (current) use of oral hypoglycemic drugs
CPT/HCPCS: 96372; 99285; 36415; 93005; 93306; 80053; 84443; 83735; 84484 ×2; 85025; 85610; 85730; 71046; G0378 ×2; J1644; Q9957